=== PATIENT | male | born 1960 | race Caucasian/White ===

== ENCOUNTER 2023-01-19 19:14 | Outpatient (REF) | payer OTHER, SELFPAY ==
[2023-01-20 12:06] LABS: Abs Immature Grans 0.05 10^3/uL (0.0-0.06); Absolute Basophil Count 0.08 10^3/uL (0.0-0.2); Absolute Eosinophil Count 0.16 10^3/uL (0.0-0.7); Absolute Lymphocyte Count 1.26 10^3/uL (1.2-3.4); Absolute Neutrophil Count 4.61 10^3/uL (1.2-6.7); Basophils % 1.2; Eosinophils % 2.4; HCT 44.3 % (40.0-50.0); HGB 14.5 g/dL (13.5-17.5); Immature Grans % 0.8; Lymphocytes % 18.9; MCH 29.9 pg (27.0-33.0); MCHC 32.7 % (32.0-36.0); MCV 91 fL (80-95); MPV 12.3 fL (8.0-11.0); Monocytes % 7.5; Neutrophils % 69.2; Platelet Count 195 10^3/uL (130-400); RBC 4.85 10^6/uL (4.36-5.78); RDW 14.2 % (11.8-14.1); RDW-SD 47.4 fL; WBC 6.66 10^3/uL (4.4-10.8)
[2023-01-20 12:33] LABS: ALT 29 U/L (16-63); AST 24 U/L (15-37); Albumin 4.2 g/dL (3.4-5.0); Alkaline Phosphatase 86 U/L (46-116); Anion Gap 6.8 mmol/L (3-11); BUN 9 mg/dL (7-18); Bilirubin, Total 1.1 mg/dL (0.2-1.0); CO2 29.2 mmol/L (21.0-32.0); CREATININE 1.2 mg/dL (0.70-1.30); Calcium 9.2 mg/dL (8.5-10.1); Chloride 106 mmol/L (98-107); Estimated GFR 67.95 (mL/min/1.73m2); Glucose 89 mg/dL (74-106); Potassium 4.3 mmol/L (3.5-5.1); Sodium 142 mmol/L (136-145); TSH (W/Ref FT4) 1.57 uIU/mL (0.36-3.74); Total Protein 7.5 g/dL (6.4-8.2)
[2023-01-20 12:39] LABS: Hemoglobin A1C < 4.5 % (<5.7)
[2023-01-20 12:45] LABS: Vitamin D 25 Total 37.9 ng/mL (30-100)
== END 2023-01-19 19:15 | disposition home or self-care (01) ==
LOC: NCHCN 19:14
PROVIDERS: PCP Nurse Practitioner Family; Visit Provider Registered Nurse
DX: F41.9 Anxiety disorder, unspecified (principal)
CPT/HCPCS: 80053; 82306; 83036; 84443; 85025

== ENCOUNTER 2023-03-17 18:25 | Outpatient (REF) | payer OTHER, SELFPAY ==
[2023-03-17 16:40] LABS: Calculated LDL 66 mg/dL (<100); Cholesterol 123 mg/dL (<200); HDL Cholesterol 45 mg/dL (40-60); Triglyceride 63 mg/dL (<150)
== END 2023-03-17 18:26 | disposition home or self-care (01) ==
LOC: NCHCN 18:25
PROVIDERS: PCP Nurse Practitioner Family; Visit Provider Nurse Practitioner Family
DX: F41.9 Anxiety disorder, unspecified (principal); G47.33 Obstructive sleep apnea (adult) (pediatric); Z80.42 Family history of malignant neoplasm of prostate; K21.9 Gastro-esophageal reflux disease without esophagitis; N40.1 Benign prostatic hyperplasia with lower urinary tract symptoms; Z12.5 Encounter for screening for malignant neoplasm of prostate
CPT/HCPCS: 80061; 84153

== ENCOUNTER 2023-07-19 07:00 | Day surgery (SDC) | payer OTHER, SELFPAY ==
--- NOTE | 2023-07-18 14:53 | PDOC.DSDIS_ITS ---
Date of service: 07/19/23 Time of Service: 08:40 Discharge Plan Disposition Patient Disposition: Home Condition: Good Discharge Details Reason For Visit: screening colonoscopy Attending Provider: Ghassan Wade Primary Care Provider: AARON JENKINS Home Meds and New Rx's Prescriptions: Continued atorvastatin 40 mg tablet 40 mg PO DAILY buspirone 15 mg tablet 15 mg PO BID omeprazole 40 mg capsule,delayed release(DR/EC) 40 mg PO DAILY paroxetine HCl 20 mg tablet 20 mg PO DAILY tamsulosin 0.4 mg capsule 0.8 mg PO DAILY ascorbate calcium (vitamin C) 500 mg tablet 500 mg PO DAILY lamotrigine 100 mg tablet 100 mg PO DAILY aspirin 81 mg tablet,delayed release (DR/EC) 81 mg PO DAILY Discontinued polyethylene glycol 3350 17 gram/dose powder 238 g PO ONCE Qty: 238 0RF Rx Instructions: take per colonoscopy instructions bisacodyl [Dulcolax (bisacodyl)] 5 mg tablet,delayed release (DR/EC) 5 mg PO ONCE Qty: 4 0RF Rx Instructions: take per colonoscopy instructions Discharge Instructions Instructions: Diverticulosis (GEN), Diverticulitis Diet (GEN) Additional Instructions: Riley, we were able to complete your colonoscopy today without any difficulty. I did not see any signs of tumors or polyps anywhere in your large intestine. Incidentally, you have a little bit of diverticulosis. These are little weak spots, or pockets in the colon wall that patients typically accumulate as we get older. I have attached some general information here regarding typical managem ent strategies for diverticulosis. Essentially, I would encourage you to have a balanced diet that is rich in fiber, and avoid symptoms of constipation. You will need another screening colonoscopy in 10 years. If you have any questions in the meantime, please do not hesitate to call. 1. If tolerated, consume a soft, low fiber diet for 1-2 days. 2[address] Do not drive, drink alcohol, operate machinery, make critical decisions, or do activities that require coordination or balance for 24 hours. 3. Because air was put into your colon during the procedure, expelling air from your rectum (passing gas or farting) is normal. 4. You may not have a bowel movement for 1-3 days because of the colonoscopy prep. This is normal. 5. Go directly to the emergency room if you notice any of the following: Develop chills (warm to touch), or if you have a thermometer and your temperature is above 101 Difficulty breathing or difficultly swallowing Persistent vomiting Severe abdominal pain, other than gas cramps Severe chest pain Black, tarry stools Any bleeding ? exceeding one tablespoon 6. Call your physician if the site where your intravenous was started becomes red, swollen, painful, and warm to touch. 7. Your physician has reviewed your pre-procedure medications. Please continue to take those medications as previously ordered. You will be given specific information/education regarding any changes to your medications before leaving. Activity:: Activity as Tolerated Diet:: As Tolerated Discharge Orders Discharge Orders: Discharge Order (Routine); Ordered 07/18/23 Ordered By: Ghassan Wade DS: Diagnosis Discharge Diagnosis (1) Screen for colon cancer: Status: Acute Asessment and Plan: Diverticulosis; otherwise negative screening colonoscopy. Follow-up in 10 years
--- NOTE | 2023-07-18 14:55 | COLE_ITS ---
Date of service: 07/19/23 Time of Service: 08:41 Colonoscopy Report Date of procedure: 07/19/23 Pre-op diagnosis general: screening colonoscopy Post-op diagnosis procedure note: other (Diverticulosis) Procedure: Colonoscopy Surgeon: Ghassan Wade Anesthesia Type: General:No Airway Estimated blood loss (mL): 0 Pathology: none sent Complications: None Disposition: same day Indications: Riley is 62 years old. He needs his next screening colonoscopy Prep: Miralax/Dulcolax Procedure Start Time: 08:20 Procedure End Time: 08:32 Retraction Time: 8 Findings: Diverticulosis Procedure Description: After the induction of monitored anesthetic care, and with the patient in left lateral decubitus position, I began by performing an external anorectal exam.? Perineum and skin were normal, as was the anal verge.? There was no evidence of external hemorrhoids.? Next, I performed a digital rectal exam.? I did not appreciate any abnormal findings.? Next, I advanced a colonoscope into the rectal vault.? I performed retroflexion.? This appeared normal.? Using insufflation, I then advanced the colonoscope beyond the rectal folds and into the sigmoid colon before advancing towards the cecum.? There was some sigmoid diverticulosis.? The scope was noted to be in the cecum by identification of the ileocecal valve and appendiceal orifice.? I then began withdrawing the colonoscope using repeated irrigation as necessary for full evaluation of the colonic mucosa. ?Once the scope was withdrawn to the level of the rectum, great care was taken to examine portions of the rectal folds.? Finally, the scope was withdrawn and the patient was brought to the same-day surgery recovery unit as the anesthetic wore off. I did not see any signs of tumors, polyps, or anything else besides the diverticulosis mentioned earlier. ?The findings and instructions were shared with the patient prior to discharge. [place] Bowel Prep [place] Bowel Prep Right Colon: 3 Left Colon: 3 Transverse Colon: 3 Total Score: 9
[2023-07-19 07:29] VITALS: BP 148/55; PULSE 58; RESP 16; TEMP 36.5; O2SAT 97
[2023-07-19] MEDS: Lactated Ringers 1,000 ML 80 ML IV (07:35)
--- NOTE | 2023-07-19 07:47 | W.ANESPRE ---
General Info Date of Service Date Performed: 07/19/23 Height: 5 ft 8 in Weight: 100 kg Body Mass Index (BMI): 33.5 Surgical Procedure: Operation Date: 07/19/23 08:20 Proposed Procedure Side Surgeon timur Wade MD Meds Allergies and Home Medications Allergies Allergy/AdvReac Type Severity Reaction Status Date / Time hydrocodone [From Vicodin] Allergy Severe Hives Verified 07/19/23 07:23 oxycodone [From Percocet] Allergy Severe Hives Verified 07/19/23 07:23 Home Medication Medication Instructions Recorded ascorbate calcium (vitamin C) 500 500 mg PO DAILY 07/03/22 mg tablet atorvastatin 40 mg tablet 40 mg PO DAILY 07/03/22 buspirone 15 mg tablet 15 mg PO BID 07/03/22 omeprazole 40 mg capsule,delayed 40 mg PO DAILY 07/03/22 release paroxetine HCl 20 mg tablet 20 mg PO DAILY 07/03/22 tamsulosin 0.4 mg capsule 0.8 mg PO DAILY 07/03/22 aspirin 81 mg tablet,delayed 81 mg PO DAILY 06/24/23 release lamotrigine 100 mg tablet 100 mg PO DAILY 06/24/23 Current Visit Medications: Current Medications Generic Name Dose Route Start Last Admin Trade Name Freq PRN Reason Stop Dose Admin Hyoscyamine Sulfate 0.125 mg 07/18/23 14:56 Hyoscyamine 0.125 Mg Sl/Oral/Chew SL 08/17/23 14:55 DIRECTED PRN Ringer's Solution 1,000 mls @ 80 mls/hr 07/19/23 06:00 IV 07/19/23 23:59 INFUSION [facility] IV Miscellaneous Supplies 1 each 07/19/23 06:00 Iv Access IV 07/19/23 23:59 DIRECTED ANDREW Ondansetron HCl 4 mg 07/18/23 14:56 Ondansetron 4 Mg/2 Ml Vial IVP 08/17/23 14:55 Q4H PRN PRN Nausea / Vomiting Sodium Chloride 0 ml 07/19/23 06:00 Normal Saline Flush 10 Ml Syr IV 07/19/23 23:59 PRN PRN Sodium Chloride 0 ml 07/19/23 06:00 Normal Saline 10 Ml Vial IJ 07/19/23 23:59 DIRECTED PRN Sterile Water 0 ml 07/19/23 06:00 Water,Injection,Sterile 10 Ml Vial IJ 07/19/23 23:59 DIRECTED PRN PFSH Active Problems Active Problems: Problem Status Onset Code Screen for colon cancer Z12.11 GERD (gastroesophageal reflux disease) K21.9 Obstructive sleep apnea G47.33 Skin lesion L98.9 Obesity E66.9 Benign prostatic hyperplasia (BPH) with urinary urgency N40.1, R39.15 Anxiety F41.9 Medical History Medical History Family history of prostate cancer Hx of squamous cell carcinoma Surgical History Surgical History Hx of arthroscopic knee surgery bilateral knees Hx of colonoscopy Hx of aortic valve repair at same time dissecting aortic aneurysm Hx of repair of dissecting thoracic aortic aneurysm, 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 Tobacco Smoking/Tobacco Use Status: Never Second hand exposure: Yes Alcohol Alcohol Intake: former Substance Use Substance use: Never Substance use type: does not use Vital Signs and Lab Results Vital Signs Most Recent Vital Signs in EMR: Most Recent Vital Signs Temp Pulse Resp BP Pulse Ox 36.5 C 58 L 16 148/55 H 97 07/19/23 07:29 07/19/23 07:29 07/19/23 07:29 07/19/23 07:29 07/19/23 07:29 Lab Results Blood Type / Crossmatch: No Data to Display Complete Blood Count: No Data to Display Complete Metabolic Panel: No Data to Display Liver Function Panel: No Data to Display Coagulation Panel: No Data to Display Cardiac Panel: No Data to Display Arterial Blood Gas: No Data to Display Venous Blood Gas: No Data to Display Pancreas Panel: No Data to Display Thyroid Panel: No Data to Display Infectious Disease: No Data to Display Blood Cultures: No Data to Display Toxicology Panel: No Data to Display Anesthesia Assessment and Plan Anesthesia History Personal History: No History of Anesthesia Complications Family History: No Family History of Anesthesia Complications Exercise Tolerance Exercise Tolerance: Metabolic Equivalents>4 Pertinent Negatives Pertinent Negatives: No Symptoms of GERD, No Major Cardiovascular Symptoms or Complaints and No Major Pulmonary Symptoms or Complaints Cardiac & Pulmonary Exam Cardiac Exam: Normal S1/S2 Heart Sounds Pulmonary Exam: Clear Bilateral Breath Sounds Implantable Cardiac Device Does patient have a Pacemaker or an ICD?: No Airway Exam Known Difficult Airway: No Mallampati Class: 3 Mouth Opening: Normal (> 3cm) Thyromental Distance: Greater than 3 cm Neck Range of Motion: Full ROM Neck Circumference: Thick Teeth Condition: Normal Dentition ASA Classification ASA Score: ASA 2 Emergency Case?: No NPO Status NPO Status: NPO Clears >2 hours, Solids >8 hours Anesthesia Plan Resuscitation Status: Full Code Anesthesia Technique: General Anesthesia Airway Planned: Natural Airway Monitors Used: Standard Monitors
[2023-07-19 08:06] VITALS: BMI 33.5
[2023-07-19 08:42] VITALS: BP 106/67; PULSE 54; RESP 14; TEMP 36.4; O2SAT 92
[2023-07-19 09:01] VITALS: BP 132/56; PULSE 57; RESP 16; O2SAT 98
--- NOTE | 2023-07-19 09:17 | W.ANESPOSTOP ---
Postoperative Evaluation Date, Time and Location Date Performed: 07/19/23 Time Performed: 09:18 Patient Location: Day Surgery Unit Vital Signs Most Recent Imported Vital Signs: Most Recent Vital Signs Temp Pulse Resp BP Pulse Ox 36.4 C L 57 L 16 132/56 L 98 07/19/23 08:42 07/19/23 09:01 07/19/23 09:01 07/19/23 09:01 07/19/23 09:01 Pain Score Most Recent Pain Score: Most Recent Pain Score Pain Level 0 07/19/23 09:01 Assessment Mental Status: Awake (Alert & Oriented to Patient Baseline) Airway and Respiratory Function: Patent airway with normal (patient baseline) respiratory exam Cardiovascular Function: Hemodynamically Stable Hydration Status: Adequately Hydrated Nausea & Vomiting: No Nausea or Vomiting Pain: Pt. Denies Any Pain Peripheral Nerve Block: Patient did not receive a nerve block
== END 2023-07-19 09:45 | disposition home or self-care (01) ==
LOC: SUR 07:00
PROVIDERS: PCP Nurse Practitioner Family; Visit Provider Surgery
PROC: 0DJD8ZZ Inspection of Lower Intestinal Tract, Via Natural or Artificial Opening Endoscopic (ICD-10-PCS; CPT 45378; principal; 2023-07-19 08:15)
DX: Z12.11 Encounter for screening for malignant neoplasm of colon (principal); K57.30 Diverticulosis of large intestine without perforation or abscess without bleeding; K21.9 Gastro-esophageal reflux disease without esophagitis; G47.33 Obstructive sleep apnea (adult) (pediatric)
CPT/HCPCS: 45378; J2001

== ENCOUNTER 2024-10-11 15:36 | Outpatient (REF) | payer BC, SELFPAY ==
[2024-10-11 19:51] LABS: ALT 36 U/L (16-63); AST 24 U/L (15-37); Albumin 4.3 g/dL (3.4-5.0); Alkaline Phosphatase 85 U/L (46-116); Anion Gap 7.6 mmol/L (3-11); BUN 15 mg/dL (7-18); Bilirubin, Total 1.06 mg/dL (0.2-1.0); CO2 29.4 mmol/L (21.0-32.0); Calcium 9.4 mg/dL (8.5-10.1); Calculated LDL 91 mg/dL (<100); Chloride 107 mmol/L (98-107); Cholesterol 165 mg/dL (<200); Estimated GFR 83.52 (mL/min/1.73m2); Glucose 96 mg/dL (74-106); HDL Cholesterol 53 mg/dL (40-60); Potassium 4.2 mmol/L (3.5-5.1); Sodium 144 mmol/L (136-145); Total Protein 7.3 g/dL (6.4-8.2); Triglyceride 109 mg/dL (<150)
[2024-10-12 22:03] LABS: PSA, Screening 3.5 ng/mL (<=4.5)
[2024-10-13 12:08] LABS: Hepatitis C Ab w Rflx HCV PCR Negative (Negative)
== END 2024-10-11 15:37 | disposition home or self-care (01) ==
LOC: NCHCN 15:36
PROVIDERS: PCP Nurse Practitioner Family; Visit Provider Nurse Practitioner Family
DX: Z00.00 Encounter for general adult medical examination without abnormal findings (principal); Z11.59 Encounter for screening for other viral diseases; Z12.5 Encounter for screening for malignant neoplasm of prostate
CPT/HCPCS: 80053; 80061; 84153; 86803

== ENCOUNTER 2025-06-26 08:59 | Day surgery (SDC) | payer BC, SELFPAY ==
--- NOTE | 2025-06-25 19:53 | W.PM.DSUDISC ---
Date of service: 06/26/25 Discharge Plan Disposition Patient Disposition: Home Condition: Good Discharge Details Reason For Visit: Umbilical hernia repair Attending Provider: Ghassan Wade Primary Care Provider: AARON JENKINS Home Meds and New Rx's Prescriptions: New tramadol 50 mg tablet 50 mg PO Q8H PRNQty: 12 0RF Rx Instructions: Take 1 tablet by mouth up to every 8 hours if needed for severe pain Continued lisdexamfetamine 20 mg capsule 20 mg PO DAILY atorvastatin 40 mg tablet 40 mg PO DAILY buspirone 15 mg tablet 15 mg PO BID omeprazole 40 mg capsule,delayed release(DR/EC) 40 mg PO DAILY tamsulosin 0.4 mg capsule 0.8 mg PO DAILY lamotrigine 100 mg tablet 100 mg PO DAILY aspirin 81 mg tablet,delayed release (DR/EC) 81 mg PO DAILY escitalopram oxalate 20 mg tablet 20 mg PO DAILY amoxicillin 500 mg capsule 2,000 mg PO PRN Rx Instructions: 1 hour prior to dental appt Discharge Instructions Instructions: Abdominal Hernia Repair, Laparoscopic Surgery Additional Instructions: Riley, it was great seeing you today, and I hope you feel well as you transition home. Things went very smoothly. We were able to identify the hernia from the inside, and reduce all of its contents out. There was nothing worrisome involved, just some preperitoneal and omental fat. I cleaned up all the edge of the fascia tissue, which is the important part to hold this together, and I placed some sutures there to close the hole. I reinforced this with permanent mesh material from the underside as we discussed beforehand. Expect to have some pain over the incisions, and at the bellybutton over the next few days. You can also get quite a bit of bruising after an operation like this. The bruising is nothing to worry about. Ice packs over the incisions, and at the bellybutton will help with pain and swelling after surgery. I placed a prescription for a medication called tramadol that you should use in addition to Tylenol and ibuprofen if you need it. You should be up and walking around a little bit each day, and resting as needed. Holding some pressure against your abdominal wall when you cough or sneeze may help provide some relief with the discomfort associated with that. Beginning tomorrow, all of the incisions can be washed with warm soapy water. Feel free to replace Band-Aids over the incisions if you find that most comfortable. If you need anything at all, please do not hesitate to call. Otherwise, I look forward to seeing in the office in follow-up. 1. Resume all of your regular medications. 2. Use ice packs over the incisions to help with pain and swelling. 3. Alternate over the counter tylenol and ibuprofen every 6 hours for the first 2 days, then use as needed. Use the prescription for tramadol if needed for more severe pain. 4. Leave bandage in place for 24 hours, then remove. 5. Shower with warm soapy water. Pat dry. Replace Band-Aids over the incisions if you find that most comfortable. 6. No soaking or tub baths until I see you in the office. 7. No heavy lifting until I see you in the office. 8. Call the office (or go directly to the emergency room after hours) if you notice any of the following: Develop chills (warm to touch), or if you have a thermometer and your temperature is above 101 Difficulty breathing or difficultly swallowing Persistent vomiting Any bleeding – exceeding one tablespoon 9. Call your physician if the site where your intravenous was started becomes red, swollen, painful, and warm to touch. Stand Alone Forms: Portal Information Referrals: Ghassan Wade MD [ [facility] STAFF PHYSICIAN, Surgery] - 07/09/25 9:00 am Activity:: No heavy lifting Remove Dressings/Wound Care:: 24 hours Shower/Bathe:: 24 hours Diet:: As Tolerated Discharge Orders Discharge Orders: Discharge Order (Routine); Ordered 06/25/25 Ordered By: Ghassan Wade DS: Diagnosis Discharge Diagnosis (1) Umbilical hernia: Status: Acute Asessment and Plan: Outpatient postoperative follow-up
--- NOTE | 2025-06-25 19:58 | W.PM.OP ---
Operative Note Operative Note PRE-OP DIAGNOSIS: Umbilical hernia POST-OP DIAGNOSIS: same PROCEDURE: Laparoscopic umbilical hernia repair with mesh SURGEON: Ghassan Wade ENGINEERING MECHANIC: Ania العراقي ANESTHESIA TYPE: Local By Surgeon and General LMA/ETT Refer to Anesthesia Record ESTIMATED BLOOD LOSS: 25 COMPLICATIONS: None Patient was transported to: PACU Patient's condition: stable Implants: Bard Ventralex ST hernia mesh Indications: Riley is a 64 year old man with a symptomatic umbilical hernia Findings: Fat-containing umbilical hernia Procedure Description: I met with Riley in the preoperative area, and we reviewed the plan for laparoscopic umbilical hernia repair. He had the chance to ask any other questions. Next, we moved back to the OR. He was assisted onto the OR table, padded and supported appropriately. General endotracheal anesthesia was initiated. The anterior abdominal wall was then prepped and draped. Next, I used local anesthetic to raise a small skin wheal in the left upper quadrant in the area of Renae's point. I made a small incision, and using a 5 mm optical viewing port, establish pneumoperitoneum. Riley was then tilted left side down. A right sided tap block was performed under laparoscopic guidance. He was then rolled to the right side, and the left side was also blocked. Next, I made a 12 mm incision in the left mid abdomen and advance the 12 mm port into the peritoneal cavity. The LigaSure was used to dissect the edge of the umbilical fascial ring. There was some preperitoneal fat contained within this hernia. This was all reduced out, and the hernia sac was completely dissected free. This was removed by way of the 12 mm port. With the fascial edge exposed, I made a small skin incision underneath the umbilicus and used a Marco Harry suture passer to obliterate the umbilical ring with a [id number] 0 Prolene suture. This hernia measured approximately 3 cm left to right by approximately 2 cm top to bottom. I did have to dissect down some of the falciform ligament using the LigaSure device in order to seat the mesh appropriately. With the hernia closed, I selected an [address] hernia mesh to provide the underlying reinforcement. This was advanced into the peritoneal cavity by way of the 12 mm port, and brought up to the anterior abdominal wall using echo 2 positioning system. The mesh was flat, provided excellent coverage, and laid nicely against the anterior abdominal wall. This was affixed to the anterior abdominal wall with surgical tacking device. All of the tacks were hemostatic. The positioning system and the 12 mm port were then removed from the left mid abdomen. Next using a Marco Harry suture passer, I closed the left abdominal wall incision with an 0 Vicryl [id number] stitch. The pneumoperitoneum was released, the remaining 5 mm port was removed. All the incisions appeared hemostatic. Skin was closed with subcuticular stitches, bandages were applied, Riley was awoken from the anesthetic, extubated, and transferred to the recovery unit. Date of Procedure: 06/26/25
[2025-06-26] VITALS (18 sets, daily range): BP systolic 105–134; BP diastolic 42–68; PULSE 51–58; RESP 11–19; TEMP 35.9–36.6; O2SAT 92–98; BMI 33.3
--- NOTE | 2025-06-26 07:52 | W.ANESPRE ---
General Info Date of Service Date Performed: 06/26/25 Height: 5 ft 8 in Weight: 99.337 kg Body Mass Index (BMI): 33.3 Surgical Procedure: Operation Date: 06/26/25 10:55 Proposed Procedure Side Surgeon p Hernia Umbilical Laparoscopic w/Mesh Ghassan Wade MD Meds Allergies and Home Medications Allergies Allergy/AdvReac Type Severity Reaction Status Date / Time hydrocodone (From Vicodin) Allergy Severe Hives Verified 06/26/25 09:28 oxycodone (From Percocet) Allergy Severe Hives Verified 06/26/25 09:28 Home Medication Medication Instructions Recorded atorvastatin 40 mg tablet 40 mg PO DAILY 07/03/22 buspirone 15 mg tablet 15 mg PO BID 07/03/22 omeprazole 40 mg capsule,delayed 40 mg PO DAILY 07/03/22 release tamsulosin 0.4 mg capsule 0.8 mg PO DAILY 07/03/22 aspirin 81 mg tablet,delayed 81 mg PO DAILY 06/24/23 release lamotrigine 100 mg tablet 100 mg PO DAILY 06/24/23 escitalopram oxalate 20 mg tablet 20 mg PO DAILY 12/14/23 amoxicillin 500 mg capsule 2,000 mg PO PRN 04/27/24 lisdexamfetamine 20 mg capsule 20 mg PO DAILY 06/20/25 Current Visit Medications: Current Medications Generic Name Dose Route Start Last Admin Trade Name Eduardq PRN Reason Stop Dose Admin Ringer's Solution 1,000 mls @ 80 mls/hr 06/26/25 06:00 IV 06/26/25 23:59 INFUSION ANDREW IV Miscellaneous Supplies 1 each 06/26/25 06:00 Iv Access IV 06/26/25 23:59 DIRECTED ANDREW Sodium Chloride 0 ml 06/26/25 06:00 Normal Saline Flush 10 Ml Syr IV 06/26/25 23:59 PRN PRN Sodium Chloride 0 ml 06/26/25 06:00 Normal Saline 10 Ml Vial IJ 06/26/25 23:59 DIRECTED PRN Sterile Water 0 ml 06/26/25 06:00 Water,Injection,Sterile 10 Ml Vial IJ 06/26/25 23:59 DIRECTED PRN Tramadol HCl 50 mg 06/25/25 19:59 Tramadol 50 Mg Tab PO 07/25/25 19:58 Q6H PRN PRN Pain PFSH Active Problems Active Problems: Problem Status Onset Code Umbilical hernia Acute K42.9 Impacted cerumen, bilateral Acute H61.23 Eczema of both external ears Acute H60.543 Chronic otitis externa of both ears Acute H60.63 Superficial mycosis, unspecified Acute B36.9 Screen for colon cancer Acute Z12.11 GERD (gastroesophageal reflux disease) Chronic K21.9 Obstructive sleep apnea Chronic G47.33 Skin lesion Acute L98.9 Obesity Chronic E66.9 Benign prostatic hyperplasia (BPH) with urinary urgency Acute N40.1, R39.15 Anxiety Chronic F41.9 Medical History Medical History Conductive hearing loss, external ear Lower urinary tract symptoms due to benign prostatic hyperplasia History of malignant neoplasm of skin Dizziness Dyslipidemia Family history of prostate cancer Hx of squamous cell carcinoma Surgical History Surgical History Hx of tonsillectomy History of aortic valve replacement Hx of arthroscopic knee surgery bilateral knees Hx of colonoscopy (~07/2023) Hx of aortic valve repair at same time dissecting aortic aneurysm Hx of repair of dissecting thoracic aortic aneurysm, 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 Tobacco Smoking/Tobacco Use Status: Never Passive smoking exposure: No Second hand exposure: Yes Alcohol Alcohol Intake: former Substance Use Substance use: Never Substance use type: does not use Vital Signs and Lab Results Vital Signs Most Recent Vital Signs in EMR: Temp Pulse Resp BP Pulse Ox 36.1 C L 54 L 16 132/68 97 06/26/25 09:31 06/26/25 09:31 06/26/25 09:31 06/26/25 09:31 06/26/25 09:31 Anesthesia Assessment and Plan Anesthesia History Personal History: No History of Anesthesia Complications Family History: No Family History of Anesthesia Complications Exercise Tolerance Exercise Tolerance: Metabolic Equivalents>4 Cardiac & Pulmonary Exam Cardiac Exam: Normal S1/S2 Heart Sounds Pulmonary Exam: Clear Bilateral Breath Sounds Implantable Cardiac Device Does patient have a Pacemaker or an ICD?: No Airway Exam Known Difficult Airway: No Mallampati Class: 3 Mouth Opening: Normal (> 3cm) Thyromental Distance: Greater than 3 cm Neck Range of Motion: Full ROM Neck Circumference: Thick Teeth Condition: Normal Dentition ASA Classification ASA Score: ASA 3 Emergency Case?: No NPO Status NPO Status: NPO Clears >2 hours, Solids >8 hours Anesthesia Plan Resuscitation Status: Full Code Anesthesia Technique: General Anesthesia Airway Planned: Endotracheal Tube Monitors Used: Standard Monitors Preoperative Comments:: 64 yo for lap hernia repair. Sig PMHx: s/p TAA repair/AVR (at [facility], now followed by [facility]), RAFAEL, GERD (omeprazole), anxiety/ADHD (escitalopram, buspirone, Vyvanse), BPH (tamsulosin). Never smoker, former EtOH. ECHO: LVEF 68%, grade III diastolic dysfunction. mild-mod MR. Previous Anes: - colo, prop, natural airway, no issues.
[2025-06-26] MEDS: Lactated Ringers 1,000 ML 80 ML IV (09:51)
[2025-06-26] MEDS: Gabapentin 300 MG CAP PO (09:57)
[2025-06-26] MEDS: Acetaminophen 500 MG TAB 1000 MG PO (09:57)
[2025-06-26] MEDS: Celecoxib 200 MG CAP PO (09:57)
[2025-06-26] MEDS: ceFAZolin 2 GM/50 ML BAG IVPB (10:29)
[2025-06-26] MEDS: Bupivacaine LIPOSOME/PF 133 MG/10 ML VIAL IJ (10:56)
[2025-06-26] MEDS: Bupivacaine 0.5% Pres-Free 30 ML VIAL (10:56)
--- NOTE | 2025-06-26 12:04 | W.ANESPOSTOP ---
Postoperative Evaluation Date, Time and Location Date Performed: 06/26/25 Time Performed: 12:04 Patient Location: PACU Vital Signs Most Recent Imported Vital Signs: Most Recent Vital Signs Temp Pulse Resp BP Pulse Ox 36.5 C 53 L 11 L 118/42 L 94 06/26/25 12:00 06/26/25 12:01 06/26/25 12:01 06/26/25 12:00 06/26/25 12:01 Pain Score Most Recent Pain Score: Most Recent Pain Score Pain Level 0 06/26/25 12:00 Assessment Mental Status: Arousable with meaningful communication Airway and Respiratory Function: Patent airway with normal (patient baseline) respiratory exam Cardiovascular Function: Hemodynamically Stable Hydration Status: Adequately Hydrated Nausea & Vomiting: No Nausea or Vomiting Pain: Pain is tolerable per patient Peripheral Nerve Block: Patient did not receive a nerve block
== END 2025-06-26 13:51 | disposition home or self-care (01) ==
LOC: SUR 09:00
PROVIDERS: PCP Nurse Practitioner Family; Visit Provider Surgery
PROC: (CPT 49650; principal; 2025-06-26 10:45)
DX: K42.9 Umbilical hernia without obstruction or gangrene (principal); G47.33 Obstructive sleep apnea (adult) (pediatric); K21.9 Gastro-esophageal reflux disease without esophagitis
CPT/HCPCS: 49593; C1781; J0665; J0666; J0690; J1100; J2405; J2704; J3010